=== PATIENT | male | born 1980 ===

== ENCOUNTER 2022-07-31 14:57 | Day surgery (SDC) | payer OTHER ==
[~2022-07-31] VITALS: Ht 180.3 cm; Wt 99.1 kg
[2022-07-31] VITALS (7 sets, daily range): BP systolic 142–158; BP diastolic 82–93; PULSE 43–52; TEMP 97.9–98.5
[2022-07-31] MEDS ORDERED: FLOMAX 0.40.4 MG/CAP PO (15:26)
[2022-07-31] MEDS ORDERED: ZOFRAN8 MG PO (15:27)
[2022-07-31] MEDS ORDERED: MELATONIN5 M1 SL (15:27)
[2022-07-31] MEDS ORDERED: IBU800 M1 PO (15:27)
[2022-07-31] MEDS ORDERED: NORCO 325 MG-51 TAB PO (17:04)
[2022-07-31] MEDS ORDERED: PYRIDIUM 100MG100 MG PO (17:04)
--- NOTE | 2022-07-31 18:15 | NUR ---
pt admitted to room from pacu. pt a&Ox4, at bedside. pt reports mild pain. denies nausea. vss. IV to right hand.
--- NOTE | 2022-07-31 18:45 | NUR ---
pt tolerating fluids and urinating without difficulty. pt requested sandwich box. admission assessment complete.
--- NOTE | 2022-07-31 21:00 | NUR ---
Patient A/Ox4, at bedside, tolerating fluids and urinating fine, discharge instructions given, questions answered, called Dr. Carpenter and received an order for [facility] percocet, IV discontinued, left the floor at 2054 with nurse aid Nate.
== END 2022-07-31 23:03 | disposition home or self-care (01) ==
LOC: SDCO 14:57 → SURG 18:23 → SDCO 23:03
DX: N13.2 Hydronephrosis with renal and ureteral calculous obstruction (principal)
CPT/HCPCS: OP; C1769; J0690; J1100; J2405; J2704; J3010; J7120; Q9967